=== PATIENT | female | born 1965 ===

== ENCOUNTER 2023-12-28 06:26 | Day surgery (SDC) | payer OTHER ==
[2023-12-23 10:11] LABS: RH POSITIVE
[~2023-12-28 06:26] MED LIST: ACTOS15 MG; CRESTOR 10MG; GLIMEPIRIDE4 MG; LANTUS; METFORMIN HCL500 M3; RAMIPRIL5 MG; SYNTHROID; VITAMINA
[2023-12-28] MEDS ORDERED: IBU600 MG PO (08:33)
[2023-12-28] MEDS ORDERED: MORPHINE SULFATE 4 MG/ML VIAL IV ONE (09:55)
== END 2023-12-28 15:50 | disposition home or self-care (01) ==
LOC: CIR.AMB 06:26
PROVIDERS: ATTEND Obstetrics & Gynecology Gynecology
DX: N72 Inflammatory disease of cervix uteri (principal); D25.0 Submucous leiomyoma of uterus; N95.0 Postmenopausal bleeding; E11.9 Type 2 diabetes mellitus without complications; I10 Essential (primary) hypertension; E03.9 Hypothyroidism, unspecified; E66.9 Obesity, unspecified; G47.30 Sleep apnea, unspecified